=== PATIENT | male | born 1980 | race Caucasian/White ===

== ENCOUNTER → 2022-07-17 | Outpatient (CLI) | payer OTHER ==
--- NOTE | 2022-07-18 11:15 | MR ---
EXAMINATION TYPE: MR lumbar spine wo con DATE OF EXAM: 07/17/2022 5:15 PM COMPARISON: None. CLINICAL INDICATION:Male, 41 years old with history of M51.16 INTERVERTEBRAL DISC DISORDERS; TECHNIQUE: Multi planar, multi sequence imaging was performed utilizing: T1-weighted, T2-weighted, a nd turbo inversion recovery imaging of the lumbar spine. IV Contrast: None. FINDINGS: Alignment: The lumbar vertebral bodies have preserved heights and alignment. Cord: The conus medullaris and the distal spinal cord appear unremarkable with regards to their signa l intensity and morphology. Bones/Discs: Scattered Modic endplate changes most proximal at the posterior adjoining endplates of L 4 and L5. Multilevel degenerative disc disease is noted and most pronounced at the L4-L5 and L5-S1.. Disc desiccation at L4-L5 and L5-S1. L1-L2: No significant disc pathology. Spinal canal is patent. The neural foramen are patent. L2-L3: Left foraminal disc extrusion which abuts the exiting and forming nerve and moderately narrows the left neural foramen. 3 neural foramen is patent and the spinal canal is otherwise patent. There is superior migration of disc material which is best appreciated on T1-weighted imaging sagittal seri es 201 image 80 focus of disc material noted up to 2.1 cm above the disc and measuring 2.1 x 0.9 cm o n sagittal imaging only. L3-L4: Disc bulge and facet joint arthropathy without significant spinal canal stenosis. No significa nt neural foraminal stenosis. L4-L5: Disc bulge and facet joint arthropathy resulting in no significant spinal canal or neural fora bert stenosis. L5-S1: No significant disc pathology. Spinal canal is patent. The neural foramen are patent. Other findings: None. IMPRESSION: L2-L3 left foraminal disc herniation (extrusion) resulting in this displacement of the exiting and fo rming nerves at this level. There is superior migration of disc material which is not in the field-of -view on axial imaging due to slice selection, this is best appreciated on sagittal imaging.
== END | disposition home or self-care (01) ==
LOC: RADMRIMAIN 16:35
PROVIDERS: ATTEND Physician Assistant
DX: M51.16 Intervertebral disc disorders with radiculopathy, lumbar region (principal); M47.26 Other spondylosis with radiculopathy, lumbar region
CPT/HCPCS: 72148